=== PATIENT | male | born 1945 | race Caucasian/White ===

== ENCOUNTER 2017-02-08 00:22 | Emergency (ER) | payer OTHER ==
[~2017-02-08] VITALS: Ht 175.3 cm; Wt 104.7 kg
[2017-02-08 01:00] LABS: ADD MIUA? NO; BILIRUBIN NEGATIVE; BLOOD NEGATIVE; COLOR YELLOW ((YELLOW)); GLUCOSE (STRIP) NEGATIVE; KETONES NEGATIVE; LEUKOCYTES NEGATIVE; NITRITE NEGATIVE; PROTEIN (STRIP) NEGATIVE; SPECIFIC GRAVITY 1.018 (1.000-1.030); UCUL ADDED? NO; UROBILINOGEN 0.2 MG/DL (0.2-1.0)
[2017-02-08 01:11] LABS: HEMATOCRIT 41.6 % (38.0-50.0); MCH 32.2 PG (29.0-34.0); MCHC 33.2 G/DL (30.0-36.0); MEAN PLAT.VOLUME 10.5 uM^3 (9.0-12.4); PLATELET COUNT 167 K/uL (156-360); RED BLOOD COUNT 4.29 M/uL (4.00-5.50); WHITE BLOOD COUNT 6.8 K/uL (4.1-10.2)
[2017-02-08 01:21] LABS: CHLORIDE 108 mEq/L (99-109); POTASSIUM 4.3 mEq/L (3.7-5.4); SODIUM 140 mEq/L (136-147)
[2017-02-08 01:23] LABS: GLUCOSE 77 mg/dL (70-99)
[2017-02-08 01:24] LABS: ANION GAP 9 MEQ/L (2-14)
[2017-02-08 01:27] LABS: GFR ESTIMATE (CALCULATED) 49 mL/min/; UREA NITROGEN (BUN) 27 mg/dL (9-23)
[2017-02-08] MEDS ORDERED: NORCO 5/3251 TABLET PO (03:45)
[2017-02-08 03:56] VITALS: BP 191/93
== END 2017-02-08 03:58 | disposition home or self-care (01) ==
LOC: EME 00:22 → EXP 00:22
DX: N40.1 Benign prostatic hyperplasia with lower urinary tract symptoms (principal); M54.5 Low back pain; R03.0 Elevated blood-pressure reading, without diagnosis of hypertension; F17.200 Nicotine dependence, unspecified, uncomplicated
CPT/HCPCS: 74176; 80048; 81003; 85027; 99281; 99284

== ENCOUNTER → 2017-08-23 | Outpatient (CLI) | payer OTHER ==
[~2017-08-23] MED LIST: NORCO 5/3251 TABLET PO
== END | disposition home or self-care (01) ==
LOC: NUC 09:34
DX: C79.51 Secondary malignant neoplasm of bone (principal); M19.072 Primary osteoarthritis, left ankle and foot; M19.071 Primary osteoarthritis, right ankle and foot; R93.7 Abnormal findings on diagnostic imaging of other parts of musculoskeletal system
CPT/HCPCS: 78306; A9503

== ENCOUNTER 2017-09-27 08:14 | Inpatient (IN) | payer OTHER ==
[~2017-09-27] VITALS: Ht 175.3 cm; Wt 99.7 kg
[2017-09-27 08:53] LABS: HEMATOCRIT 39.6 % (38.0-50.0); HEMOGLOBIN 13.7 G/DL (12.5-16.6); MCH 32.9 PG (29.0-34.0); MCHC 34.6 G/DL (30.0-36.0); MCV 95.2 FL (86-99); PLATELET COUNT 125 K/uL (156-360); RBC DIS.WIDTH-CV 12.4 % (11.8-14.6); RBC DIS.WIDTH-SD 42.6 % (39-53); RED BLOOD COUNT 4.16 M/uL (4.00-5.50); WHITE BLOOD COUNT 7.1 K/uL (4.1-10.2)
[2017-09-27 09:01] LABS: CHLORIDE 102 mEq/L (99-109); POTASSIUM 3.4 mEq/L (3.7-5.4); SODIUM 141 mEq/L (136-147)
[2017-09-27 09:03] LABS: GLUCOSE 111 mg/dL (70-99)
[2017-09-27 09:07] LABS: CREATININE 1.2 mg/dL (0.6-1.3); GFR ESTIMATE (CALCULATED) > 59 mL/min/ (58.99-99999)
[2017-09-27 09:08] LABS: UREA NITROGEN (BUN) 22 mg/dL (9-23)
[2017-09-27 09:15] LABS: TROP-I INTERPRETATION NEGATIVE; TROPONIN-I < 0.01 ng/mL (0.0-0.30)
[2017-09-27 10:52] LABS: INTER. NORMALIZED RATIO 1.1
[2017-09-27 10:55] LABS: PTT 22.3 SEC (25-37)
[2017-09-27] MEDS ORDERED: BENAZEPRIL HCL20 MG PO (11:42)
[2017-09-27] MEDS ORDERED: LUPRON DEPOT45 MG IM (11:44)
[2017-09-27] MEDS ORDERED: ZYTIGA500 MG PO (11:44)
[2017-09-27] MEDS ORDERED: PERCOCET 5/31 TABLET PO (11:45)
[2017-09-27] MEDS ORDERED: PREDNISONE5 MG PO (11:45)
[2017-09-27] MEDS ORDERED: CALTRATE 600 +1 EAC2 PO (11:45)
[2017-09-27] MEDS ORDERED: XGEVA120 MG/1.7 SC (11:46)
[2017-09-27 16:10] VITALS: BP 120/58
[2017-09-27 16:42] LABS: BASOPHIL (%) 0.2 % (0-1); EOSINOPHIL COUNT 0.1 K/uL (0-0.3); HEMATOCRIT 37.3 % (38.0-50.0); HEMOGLOBIN 12.6 G/DL (12.5-16.6); IMMATURE GRANULOCYTE (%) 0.6 % (0.0-0.7); LYMPHOCYTE (%) 5.2 % (15-42); LYMPHOCYTE COUNT 0.5 K/uL (1.0-2.8); MCH 32.9 PG (29.0-34.0); MCHC 33.8 G/DL (30.0-36.0); MCV 97.4 FL (86-99); MONOCYTE (%) 11.2 % (3-12); MONOCYTE COUNT 1.2 K/uL (0-0.8); NEUTROPHIL (%) 81.8 % (45-76); NEUTROPHIL COUNT 8.5 K/uL (1.8-6.4); PLATELET COUNT 140 K/uL (156-360); RBC DIS.WIDTH-CV 12.6 % (11.8-14.6); RBC DIS.WIDTH-SD 44.1 % (39-53); RED BLOOD COUNT 3.83 M/uL (4.00-5.50); WHITE BLOOD COUNT 10.4 K/uL (4.1-10.2)
[2017-09-27 17:04] LABS: ALKALINE PHOSPHATASE 43 IU/L (3-129); ALT (GPT) 14 IU/L (3-49); AST (GOT) 14 IU/L (2-34); CHLORIDE 102 MEQ/L (99-109); CREATININE 1.3 MG/DL (0.6-1.3); GFR ESTIMATE (CALCULATED) 58 mL/min/ (58.99-99999); GLUCOSE 120 mg/dL (70-99); POTASSIUM 3.2 MEQ/L (3.7-5.4); SODIUM 138 MEQ/L (136-147); TOTAL BILIRUBIN 0.9 MG/DL (0.0-1.0); TOTAL PROTEIN 5.1 G/DL (6.4-8.3); UREA NITROGEN (BUN) 21 mg/dL (9-23)
[2017-09-27 17:15] LABS: ERTH.SED.RATE 9 MM/HR (0-20)
[2017-09-27 19:36] VITALS: BP 156/72
[2017-09-28] VITALS (7 sets, daily range): BP systolic 121–178; BP diastolic 66–80
[2017-09-29 02:55] VITALS: BP 149/80
[2017-09-29 07:50] VITALS: BP 163/77
[2017-09-29 11:46] VITALS: BP 166/84
[2017-09-29 18:31] VITALS: BP 183/79
[2017-09-29 20:12] VITALS: BP 177/93
[2017-09-30 00:48] VITALS: BP 170/85
[2017-09-30 04:51] VITALS: BP 180/85
[2017-09-30 08:17] VITALS: BP 136/75
[2017-09-30 12:10] VITALS: BP 157/72
[2017-09-30 13:52] LABS: BASOPHIL (%) 0.4 % (0-1); EOSINOPHIL (%) 1.7 % (0-5); EOSINOPHIL COUNT 0.1 K/uL (0-0.3); HEMATOCRIT 40.1 % (38.0-50.0); HEMOGLOBIN 13.4 G/DL (12.5-16.6); IMMATURE GRANULOCYTE (%) 0.4 % (0.0-0.7); LYMPHOCYTE (%) 10.1 % (15-42); LYMPHOCYTE COUNT 0.5 K/uL (1.0-2.8); MCH 32.6 PG (29.0-34.0); MCHC 33.4 G/DL (30.0-36.0); MCV 97.6 FL (86-99); MONOCYTE (%) 13.3 % (3-12); MONOCYTE COUNT 0.7 K/uL (0-0.8); NEUTROPHIL (%) 74.1 % (45-76); NEUTROPHIL COUNT 3.9 K/uL (1.8-6.4); RBC DIS.WIDTH-CV 12.3 % (11.8-14.6); RBC DIS.WIDTH-SD 44.3 % (39-53); RED BLOOD COUNT 4.11 M/uL (4.00-5.50); WHITE BLOOD COUNT 5.3 K/uL (4.1-10.2)
[2017-09-30 14:09] LABS: PLATELET COUNT 193 K/uL (156-360)
[2017-09-30 14:17] LABS: ALKALINE PHOSPHATASE 57 IU/L (3-129); ALT (GPT) 11 IU/L (3-49); AMYLASE 25 IU/L (1-118); AST (GOT) 15 IU/L (2-34); CHLORIDE 101 MEQ/L (99-109); CREATININE 1.2 MG/DL (0.6-1.3); GFR ESTIMATE (CALCULATED) > 59 mL/min/ (58.99-99999); GLUCOSE 107 mg/dL (70-99); LIPASE 16 U/L (1.0-51.0); SODIUM 140 MEQ/L (136-147); TOTAL BILIRUBIN 0.8 MG/DL (0.0-1.0); TOTAL PROTEIN 5.2 G/DL (6.4-8.3); UREA NITROGEN (BUN) 22 mg/dL (9-23)
[2017-09-30 14:19] LABS: POTASSIUM 4.5 MEQ/L (3.7-5.4)
[2017-09-30 18:02] LABS: TROP-I INTERPRETATION NEGATIVE; TROPONIN-I 0.01 ng/mL (0.0-0.30)
[2017-09-30 18:27] LABS: TROP-I INTERPRETATION NEGATIVE; TROPONIN-I < 0.01 ng/mL (0.0-0.30)
[2017-09-30 19:38] VITALS: BP 172/79
[2017-10-01 00:17] VITALS: BP 178/92
[2017-10-01 00:40] LABS: TROP-I INTERPRETATION NEGATIVE; TROPONIN-I < 0.01 ng/mL (0.0-0.30)
[2017-10-01 06:08] LABS: TROP-I INTERPRETATION NEGATIVE; TROPONIN-I < 0.01 ng/mL (0.0-0.30)
[2017-10-01 07:44] VITALS: BP 175/82
[2017-10-01] MEDS ORDERED: CEFTIN500 MG PO (13:08)
[2017-10-01] MEDS ORDERED: ONDANSETRON ODT4 MG PO (13:10)
[2017-10-01] MEDS ORDERED: Colchicine,Colcrys PO (13:10)
[2017-10-01] MEDS ORDERED: ALLOPURINOL100 MG PO (13:10)
[2017-10-01] MEDS ORDERED: XARELTO15 MG PO (14:39)
== END 2017-10-01 15:43 | disposition home or self-care (01) | DRG 175 ==
LOC: EME → EDBD 08:14 → EME 08:14 → EDOF 13:58 → 2EAST 13:58 → ENRESERV 14:01 → 2EAST 16:02
PROVIDERS: Family Medicine; Nurse Practitioner Family
DX: I26.99 Other pulmonary embolism without acute cor pulmonale (principal); I82.431 Acute embolism and thrombosis of right popliteal vein; J18.9 Pneumonia, unspecified organism; C79.51 Secondary malignant neoplasm of bone; R04.2 Hemoptysis; R09.02 Hypoxemia; Z85.46 Personal history of malignant neoplasm of prostate; I10 Essential (primary) hypertension; M10.9 Gout, unspecified; E66.9 Obesity, unspecified; Z68.32 Body mass index [BMI] 32.0-32.9, adult; M54.5 Low back pain; M54.6 Pain in thoracic spine; R11.2 Nausea with vomiting, unspecified; F17.200 Nicotine dependence, unspecified, uncomplicated
CPT/HCPCS: 71045; 71275; 72131; 74176; 80048; 80053; 82150; 83690; 84484; 84550; 85025; 85027; 85610; 85651; 85730; 93005; 93306; 93970; 94640; 94799; 99281; 99285; J0696; J7030; J7512